=== PATIENT | male | born 1960 | race Hispanic/Latino ===

== ENCOUNTER 2021-11-09 09:10 | Inpatient (IN) | payer BC ==
[2021-11-08 14:08] LABS: BASOPHILS % (AUTO) 0.6 % (0.0-5.0); EOSINOPHILS % (AUTO) 1.9 % (0.0-8.0); HEMATOCRIT 36.2 % (42-54); LYMPHOCYTES % (AUTO) 20.1 % (21.0-51.0); MEAN CORPUSCULAR HEMOGLOBIN 29.4 pg (27.0-33.0); MEAN CORPUSCULAR HGB CONC 32.9 g/dL (32.0-36.0); MEAN CORPUSCULAR VOLUME 89.4 fL (79-99); MONOCYTES % (AUTO) 6.2 % (3.0-13.0); NEUTROPHILS % (AUTO) 70.8 % (40.0-77.0); PLATELET COUNT (AUTO) 249 K/uL (130-400); RED BLOOD CELL COUNT(AUTO) 4.05 MIL/uL (4.50-6.20); RED CELL DISTRIBUTION WIDTH 13.6 % (11.0-15.5); WHITE BLOOD COUNT (AUTO) 8.2 K/uL (4.8-10.8)
[2021-11-08 14:10] VITALS: BP 104/75
[2021-11-08 14:12] LABS: ABG BASE EXCESS 0.6 mmol/L (-2.0-3.0); ABG OXYGEN SATURATION 97.9 % (95.0-99.0); ABG PCO2 31 mmHg (35-48)
[2021-11-08 14:19] LABS: INR 1.1 (0.85-1.15); PROTHROMBIN TIME 11.9 SEC (9.6-11.6)
[2021-11-08 14:20] LABS: PARTIAL THROMBOPLASTIN TIME 28.7 SEC (26.3-35.5)
[2021-11-08 14:22] LABS: ALBUMIN 3.6 g/dL (3.5-5.0); BILIRUBIN,TOTAL 0.5 mg/dL (0.2-1.0); POTASSIUM 3.8 mmol/L (3.5-5.1); TOTAL PROTEIN, SERUM 7.6 g/dL (6.0-8.3)
[2021-11-08 14:23] LABS: HEMOGLOBIN A1C 8.2 % (4.0-6.0)
[~2021-11-09] VITALS: Ht 170.2 cm; Wt 78.6 kg
[2021-11-09] MEDS ORDERED: CARV3.1262 PO (12:45)
[2021-11-09] MEDS ORDERED: LISI2.5T13 PO (12:45)
[2021-11-09] MEDS ORDERED: FURO40TA5 PO (12:45)
[2021-11-09] MEDS ORDERED: ASPI-1197 PO (12:45)
[2021-11-09] MEDS ORDERED: APIX5TAB PO (12:45)
[2021-11-09] MEDS ORDERED: ATOR40TA71 PO (12:45)
[2021-11-09] MEDS ORDERED: METF-444 PO (12:45)
[2021-11-10] MEDS ORDERED: CEFAZOLIN SODIUM 1 GM VIAL IVP SCH (06:00)
[2021-11-12] VITALS (10 sets, daily range): BP systolic 96–131; BP diastolic 48–87
[2021-11-12] MEDS ORDERED: AMINOCAPROIC ACID 5,000MG VIAL 15,000 MG in 0.9% NACL 500ML IV.SOLN 420 ML IV PRN ×2 (09:00→14:53)
[2021-11-12] MEDS ORDERED: 0.9%NACL 1000ML 1,000 ML IV ONE ×2 (09:27→20:41)
[2021-11-12] MEDS ORDERED: NITROGLYCERIN 50MG/D5W 250ML 1 BOT ONE (11:29)
[2021-11-12] MEDS ORDERED: OCTYL 2-CYANOACRYLATE 1 EACH TP ONE (11:33)
[2021-11-12] MEDS ORDERED: CEFAZOLIN SODIUM 1 GM VIAL ONE ×3 (11:33→19:35)
[2021-11-12] MEDS ORDERED: PAPAVERINE HCL 30 MG/ML 2ML VIAL ONE ×2 (11:34→16:09)
[2021-11-12] MEDS ORDERED: HEPARIN 10,000 UNIT/10ML (1,000 UNIT/ML) VIAL IV ONE (14:45)
[2021-11-12] MEDS ORDERED: AMINOCAPROIC ACID 5,000MG VIAL IV ONE (14:45)
[2021-11-12] MEDS ORDERED: MANNITOL 25% 50ML VIAL IV ONE (14:45)
[2021-11-12] MEDS ORDERED: ALBUMIN (HUMAN) 25% 50 ML IV ONE (14:45)
[2021-11-12] MEDS ORDERED: PHENYLEPHRINE HCL 10 MG/ML 1ML VIAL IV ONE (14:45)
[2021-11-12] MEDS ORDERED: MAGNESIUM SULFATE 1 GM/2 ML VIAL IM ONE (14:45)
[2021-11-12] MEDS ORDERED: SODIUM BICARB 8.4% 50ML SYRINGE IVP ONE (14:45)
[2021-11-12] MEDS ORDERED: EPINEPHRINE PF 1MG AMP 10 MG in 0.9% NACL 250ML 240 ML IV PRN (14:51)
[2021-11-12] MEDS ORDERED: NOREPINEPHRINE BITARTRATE 8 MG in 0.9% NACL 250ML 250 ML IV PRN (14:52)
[2021-11-12] MEDS ORDERED: HEPARIN 10,000 UNIT/10ML (1,000 UNIT/ML) VIAL ONE ×2 (15:15→16:36)
[2021-11-12] MEDS ORDERED: EPINEPHRINE PF 1MG AMP ONE (16:36)
[2021-11-12] MEDS ORDERED: LIDOCAINE PF 100MG/5ML (2%) SYRINGE 5ML ONE ×2 (16:36→16:37)
[2021-11-12] MEDS ORDERED: PROTAMINE SULFATE 10 MG/ML 25ML VIAL IV ONE (16:36)
[2021-11-12] MEDS ORDERED: ESMOLOL HCL 10 MG/ML 10 ML VIAL ONE ×2 (16:36→16:40)
[2021-11-12] MEDS ORDERED: SODIUM BICARB 50MEQ 50ML VIAL 150 ML ONE (16:36)
[2021-11-12] MEDS ORDERED: ROCURONIUM 10MG/1ML SYR 10 MG/ML ML ONE (16:37)
[2021-11-12] MEDS ORDERED: FENTANYL CITRATE PF 50 MCG/1 ML 20ML VIAL IJ ONE (16:37)
[2021-11-12] MEDS ORDERED: NOREPINEPHRINE BITARTRATE 1 MG/1 ML ML IV ONE (16:37)
[2021-11-12] MEDS ORDERED: SUCCINYLCHOLINE CHLORIDE 20 MG/ML 10 ML VIAL ONE (16:37)
[2021-11-12] MEDS ORDERED: PROPOFOL 10 MG/ML 20ML VIAL IV ONE (16:37)
[2021-11-12] MEDS ORDERED: MIDAZOLAM HCL 1 MG/ML 2ML VIAL ONE (16:37)
[2021-11-12] MEDS ORDERED: AMINOCAPROIC ACID 5,000MG VIAL ONE (16:37)
[2021-11-12] MEDS ORDERED: ETOMIDATE 20MG VIAL ONE (16:40)
[2021-11-12] MEDS ORDERED: AMIODARONE 150MG VIAL ONE (17:04)
[2021-11-12] MEDS ORDERED: VASOPRESSIN 20 UNITS/ML 1ML VIAL ONE (17:05)
[2021-11-12 17:24] LABS: ABG BASE EXCESS -3.4 mmol/L (-2.0-3.0); ABG HCO3 20.7 mmol/L (21.0-28.0); ABG OXYGEN SATURATION 99.8 % (95.0-99.0); ABG PCO2 34 mmHg (35-48)
[2021-11-12 18:28] LABS: ABG HCO3 23.2 mmol/L (21.0-28.0); ABG OXYGEN SATURATION 99.6 % (95.0-99.0); ABG PCO2 37 mmHg (35-48)
[2021-11-12 19:30] LABS: ABG BASE EXCESS 1.7 mmol/L (-2.0-3.0); ABG HCO3 26.2 mmol/L (21.0-28.0); ABG OXYGEN SATURATION 96.9 % (95.0-99.0); ABG PCO2 41 mmHg (35-48)
[2021-11-12] MEDS ORDERED: GLUCAGON 1MG KIT 1 MG ML IM PRN ×2 (20:00→21:30)
[2021-11-12] MEDS ORDERED: DEXTROSE 50%-WATER 50 ML DISP.SYRIN IV PRN ×2 (20:00→21:30)
[2021-11-12 20:02] LABS: ABG BASE EXCESS 4.7 mmol/L (-2.0-3.0); ABG HCO3 29.1 mmol/L (21.0-28.0); ABG OXYGEN SATURATION 98.8 % (95.0-99.0); ABG PCO2 42 mmHg (35-48)
[2021-11-12] MEDS ORDERED: NS PMX IV ONE (20:41)
[2021-11-12] MEDS ORDERED: 0.9% NACL 500ML IV.SOLN 500 ML IV ONE (20:41)
[2021-11-12] MEDS ORDERED: NOREPINEPHRIN 8 MG/250 ML IV ONE (20:41)
[2021-11-12] MEDS ORDERED: ALBUMIN (HUMAN) 5% 500 ML IV ONE (20:50)
[2021-11-12] MEDS ORDERED: ATORVASTATIN 40 MG TABLET PO SCH (21:00)
[2021-11-12 21:02] LABS: ABG BASE EXCESS 2.3 mmol/L (-2.0-3.0); ABG OXYGEN SATURATION 99.2 % (95.0-99.0); ABG PCO2 27 mmHg (35-48)
[2021-11-12] MEDS ORDERED: POTASSIUM CHLORIDE 20MEQ/100ML 200 ML IV ONE (21:17)
[2021-11-12] MEDS ORDERED: MORPHINE 2 MG SYG IV PRN ×2 (21:30)
[2021-11-12] MEDS ORDERED: NITROGLYCERIN 50MG/D5W 250ML 250 BOT IV SCH (21:30)
[2021-11-12] MEDS ORDERED: PROPOFOL 1000 MG/100 ML 100 ML IV PRN (21:30)
[2021-11-12] MEDS ORDERED: AMINOCAPROIC ACID 5,000MG VIAL 15,000 MG in 0.9% NACL 250ML 250 ML IV SCH (21:30)
[2021-11-12] MEDS ORDERED: NOREPINEPHRIN 4MG/NS 250ML 250 ML IV PRN (21:30)
[2021-11-12] MEDS ORDERED: ACETAMINOPHEN 650 MG SUPPOSITORY RC PRN (21:30)
[2021-11-12] MEDS ORDERED: ALBUMIN (HUMAN) 5% 250 ML IV PRN (21:30)
[2021-11-12] MEDS ORDERED: EPINEPHRINE PF 1MG AMP 10 MG in DEXTROSE 5%-WATER 250 ML IV PRN (21:30)
[2021-11-12] MEDS ORDERED: 0.9% NACL 500ML IV.SOLN 500 ML IV SCH (21:30)
[2021-11-12] MEDS ORDERED: ONDANSETRON 4MG INJ IV PRN (21:30)
[2021-11-12] MEDS ORDERED: 0.9%NACL 1000ML 1,000 ML IV SCH (21:30)
[2021-11-12] MEDS ORDERED: 0.9%NACL 10ML VIAL IVP PRN (21:30)
[2021-11-12] MEDS ORDERED: INSULIN REGULAR, HUMAN 3ML 100 UNIT in 0.9%NACL 100ML 99 ML IV SCH ×2 (21:30)
[2021-11-12 22:04] LABS: BASOPHILS % (AUTO) 0.4 % (0.0-5.0); EOSINOPHILS % (AUTO) 0.5 % (0.0-8.0); HEMATOCRIT 24.7 % (42-54); LYMPHOCYTES % (AUTO) 15.2 % (21.0-51.0); MEAN CORPUSCULAR HEMOGLOBIN 30.2 pg (27.0-33.0); MEAN CORPUSCULAR HGB CONC 33.6 g/dL (32.0-36.0); MEAN CORPUSCULAR VOLUME 89.8 fL (79-99); MONOCYTES % (AUTO) 4.2 % (3.0-13.0); NEUTROPHILS % (AUTO) 79.2 % (40.0-77.0); PLATELET COUNT (AUTO) 221 K/uL (130-400); RED BLOOD CELL COUNT(AUTO) 2.75 MIL/uL (4.50-6.20); RED CELL DISTRIBUTION WIDTH 13.7 % (11.0-15.5); WHITE BLOOD COUNT (AUTO) 16.7 K/uL (4.8-10.8)
[2021-11-12 22:15] LABS: POTASSIUM 3.2 mmol/L (3.5-5.1)
[2021-11-12 22:16] LABS: HEMOGLOBIN A1C 8.3 % (4.0-6.0)
[2021-11-12 22:18] LABS: MAGNESIUM 2.1 mg/dL (1.80-2.40); PHOSPHORUS 1.3 mg/dL (2.5-4.9)
[2021-11-12 22:19] LABS: INR 1.27 (0.85-1.15); PROTHROMBIN TIME 13.5 SEC (9.6-11.6)
[2021-11-12 22:20] LABS: PARTIAL THROMBOPLASTIN TIME 27.3 SEC (26.3-35.5)
[2021-11-12] MEDS ORDERED: ASPIRIN 81MG CHEW TAB NG ONE (22:30)
[2021-11-12] MEDS ORDERED: DEXMEDETOMIDINE 400MCG/NS100ML IV ONE (22:43)
[2021-11-12] MEDS: INSULIN IV SS2 IV PRN ×2 (23:17)
[2021-11-12 23:26] LABS: ABG BASE EXCESS 0.9 mmol/L (-2.0-3.0); ABG HCO3 24.5 mmol/L (21.0-28.0); ABG OXYGEN SATURATION 98.8 % (95.0-99.0); ABG PCO2 35 mmHg (35-48)
[2021-11-12] MEDS: POTASSIUM CHLORIDE 20MEQ/100ML 100 ML IV PRN (23:36)
[2021-11-13] VITALS (75 sets, daily range): BP systolic 94–146; BP diastolic 46–93
[2021-11-13] MEDS ORDERED: DEXMEDETOMIDINE 400MCG/NS100ML IV SCH
[2021-11-13 00:28] LABS: ABG BASE EXCESS -0.5 mmol/L (-2.0-3.0); ABG HCO3 23.7 mmol/L (21.0-28.0); ABG OXYGEN SATURATION 97.8 % (95.0-99.0); ABG PCO2 37 mmHg (35-48)
[2021-11-13] MEDS: POTASSIUM CHLORIDE 20MEQ/100ML 100 ML IV PRN ×4 (01:04→04:27)
[2021-11-13 01:27] LABS: ABG BASE EXCESS 0.3 mmol/L (-2.0-3.0); ABG HCO3 23.8 mmol/L (21.0-28.0); ABG OXYGEN SATURATION 97.9 % (95.0-99.0); ABG PCO2 34 mmHg (35-48)
[2021-11-13] MEDS: CEFAZOLIN SODIUM 1 GM VIAL IV SCH ×3 (01:51→18:03)
[2021-11-13 03:06] LABS: ABG BASE EXCESS 0.8 mmol/L (-2.0-3.0); ABG OXYGEN SATURATION 98.1 % (95.0-99.0); ABG PCO2 33 mmHg (35-48)
[2021-11-13] MEDS: CALCIUM GLUC 1GM 1 GM in 0.9%NACL 50ML 50 ML IV PRN ×2 (03:42→19:32)
[2021-11-13 04:02] LABS: ABG BASE EXCESS 0.6 mmol/L (-2.0-3.0); ABG HCO3 23.7 mmol/L (21.0-28.0); ABG PCO2 32 mmHg (35-48)
[2021-11-13 04:20] LABS: HEMATOCRIT 25.7 % (42-54); MEAN CORPUSCULAR HEMOGLOBIN 29.6 pg (27.0-33.0); MEAN CORPUSCULAR HGB CONC 32.7 g/dL (32.0-36.0); MEAN CORPUSCULAR VOLUME 90.5 fL (79-99); RED BLOOD CELL COUNT(AUTO) 2.84 MIL/uL (4.50-6.20); RED CELL DISTRIBUTION WIDTH 13.7 % (11.0-15.5); WHITE BLOOD COUNT (AUTO) 16.5 K/uL (4.8-10.8)
[2021-11-13 04:35] LABS: INR 1.21 (0.85-1.15)
[2021-11-13 04:37] LABS: CREATININE 1.1 mg/dL (0.5-1.5); PHOSPHORUS 0.8 mg/dL (2.5-4.9); POTASSIUM 4.3 mmol/L (3.5-5.1)
[2021-11-13 04:56] LABS: PARTIAL THROMBOPLASTIN TIME 29.8 SEC (26.3-35.5)
[2021-11-13 05:32] LABS: ABG BASE EXCESS -0.3 mmol/L (-2.0-3.0); ABG HCO3 22.9 mmol/L (21.0-28.0); ABG PCO2 32 mmHg (35-48)
[2021-11-13 06:34] LABS: ABG BASE EXCESS -1.9 mmol/L (-2.0-3.0); ABG OXYGEN SATURATION 97.9 % (95.0-99.0); ABG PCO2 29 mmHg (35-48)
[2021-11-13] MEDS: SODIUM BICARB 50MEQ 50ML VIAL IV PRN ×2 (06:47→21:27)
[2021-11-13] MEDS: POTASSIUM PHOS 15 mMOL+NS250ML 250 ML IV PRN (07:35)
[2021-11-13 07:46] LABS: ABG BASE EXCESS -0.1 mmol/L (-2.0-3.0); ABG HCO3 22.4 mmol/L (21.0-28.0); ABG OXYGEN SATURATION 97.9 % (95.0-99.0); ABG PCO2 29 mmHg (35-48)
[2021-11-13] MEDS: ASPIRIN 81MG CHEW TAB PO SCH (08:15)
[2021-11-13] MEDS: ACETAMINOPHEN 325 MG TAB PO PRN ×2 (08:15→13:27)
[2021-11-13] MEDS ORDERED: FAMOTIDINE 20MG VIAL IV SCH (09:00)
[2021-11-13 09:18] LABS: ABG BASE EXCESS -0.8 mmol/L (-2.0-3.0); ABG OXYGEN SATURATION 97.9 % (95.0-99.0); ABG PCO2 30 mmHg (35-48)
[2021-11-13] MEDS: MAGNESIUM 2GM PREMIX 50ML 50 ML IV PRN (10:30)
[2021-11-13] MEDS ORDERED: ALBUMIN (HUMAN) 5% 500 ML IV SCH (11:00)
[2021-11-13] MEDS ORDERED: ALBUMIN (HUMAN) 5% 500 ML IV ONE (11:01)
[2021-11-13 12:10] LABS: ABG BASE EXCESS -1.3 mmol/L (-2.0-3.0); ABG HCO3 21.8 mmol/L (21.0-28.0); ABG PCO2 31 mmHg (35-48)
[2021-11-13 15:58] LABS: CREATININE 1.1 mg/dL (0.5-1.5); MAGNESIUM 2.2 mg/dL (1.80-2.40); PHOSPHORUS 4.1 mg/dL (2.5-4.9); POTASSIUM 4.7 mmol/L (3.5-5.1)
[2021-11-13] MEDS: 1/2 NS 1000ML 1,000 ML IV SCH (16:00)
[2021-11-13] MEDS: TRAMADOL HCL 50 MG TABLET PO PRN ×2 (16:36→23:16)
[2021-11-13 19:26] LABS: ABG BASE EXCESS -0.6 mmol/L (-2.0-3.0); ABG HCO3 23.2 mmol/L (21.0-28.0); ABG OXYGEN SATURATION 97.5 % (95.0-99.0); ABG PCO2 34 mmHg (35-48)
[2021-11-13] MEDS: INSULIN IV SS2 IV PRN ×2 (19:33)
[2021-11-13] MEDS: FUROSEMIDE 20 MG TABLET PO SCH (20:14)
[2021-11-13] MEDS: ATORVASTATIN 40 MG TABLET PO SCH (20:14)
[2021-11-13] MEDS: FAMOTIDINE 20MG TAB PO SCH (20:14)
[2021-11-13] MEDS ORDERED: EPINEPHRINE IV PRN ×2 (20:30)
[2021-11-13] MEDS ORDERED: NOREPINEPHRINE IV PRN ×2 (20:30)
[2021-11-13] MEDS ORDERED: [UNRECOGNIZED DRUG - OTHER] IV PRN ×2 (20:30)
[2021-11-13] MEDS ORDERED: NS IV PRN ×2 (20:30)
[2021-11-13 21:16] LABS: ABG BASE EXCESS -1.4 mmol/L (-2.0-3.0); ABG HCO3 22.7 mmol/L (21.0-28.0); ABG OXYGEN SATURATION 96.9 % (95.0-99.0); ABG PCO2 35 mmHg (35-48)
[2021-11-14] VITALS (24 sets, daily range): BP systolic 116–170; BP diastolic 59–103
[2021-11-14] LABS: ABG BASE EXCESS -0.5 mmol/L (-2.0-3.0); ABG HCO3 23.8 mmol/L (21.0-28.0); ABG OXYGEN SATURATION 96.5 % (95.0-99.0); ABG PCO2 37 mmHg (35-48)
[2021-11-14] MEDS: CALCIUM GLUC 1GM 1 GM in 0.9%NACL 50ML 50 ML IV PRN ×3 (00:12→22:05)
[2021-11-14] MEDS: POTASSIUM CHLORIDE 20MEQ/100ML 100 ML IV PRN ×2 (00:13→22:05)
[2021-11-14] MEDS: 1/2 NS 1000ML 1,000 ML IV SCH (03:11)
[2021-11-14 04:18] LABS: ABG BASE EXCESS -0.5 mmol/L (-2.0-3.0); ABG HCO3 23.6 mmol/L (21.0-28.0); ABG OXYGEN SATURATION 95.7 % (95.0-99.0); ABG PCO2 37 mmHg (35-48)
[2021-11-14 04:29] LABS: HEMATOCRIT 24.1 % (42-54); MEAN CORPUSCULAR VOLUME 93.8 fL (79-99); RED BLOOD CELL COUNT(AUTO) 2.57 MIL/uL (4.50-6.20); RED CELL DISTRIBUTION WIDTH 14.5 % (11.0-15.5); WHITE BLOOD COUNT (AUTO) 16.3 K/uL (4.8-10.8)
[2021-11-14 04:36] LABS: INR 1.45 (0.85-1.15); PROTHROMBIN TIME 15.3 SEC (9.6-11.6)
[2021-11-14 04:38] LABS: PARTIAL THROMBOPLASTIN TIME 33.2 SEC (26.3-35.5)
[2021-11-14 04:56] LABS: ALBUMIN 3.4 g/dL (3.5-5.0); BILIRUBIN,TOTAL 1.1 mg/dL (0.2-1.0); CREATININE 0.9 mg/dL (0.5-1.5); MAGNESIUM 2.1 mg/dL (1.80-2.40); POTASSIUM 4.5 mmol/L (3.5-5.1)
[2021-11-14 07:56] LABS: ABG HCO3 24.4 mmol/L (21.0-28.0); ABG OXYGEN SATURATION 97.6 % (95.0-99.0); ABG PCO2 38 mmHg (35-48)
[2021-11-14] MEDS: FUROSEMIDE 20 MG TABLET PO SCH (08:48)
[2021-11-14] MEDS: ASPIRIN 81MG CHEW TAB PO SCH (08:48)
[2021-11-14] MEDS: FAMOTIDINE 20MG TAB PO SCH ×2 (08:48→20:06)
[2021-11-14] MEDS: TRAMADOL HCL 50 MG TABLET PO PRN ×2 (08:50→21:31)
[2021-11-14] MEDS: INSULIN HUMULIN R 100 UNIT/ML 3ML SQ SCH ×3 (11:30→20:26)
[2021-11-14] MEDS: FUROSEMIDE 40MG VIAL IV SCH (13:36)
[2021-11-14 15:40] LABS: ABG HCO3 21.9 mmol/L (21.0-28.0); ABG OXYGEN SATURATION 96.6 % (95.0-99.0); ABG PCO2 34 mmHg (35-48)
[2021-11-14] MEDS: SODIUM BICARB 50MEQ 50ML VIAL IV PRN (15:45)
[2021-11-14 18:36] LABS: MAGNESIUM 1.9 mg/dL (1.80-2.40); POTASSIUM 4.4 mmol/L (3.5-5.1)
[2021-11-14] MEDS: MAGNESIUM 2GM PREMIX 50ML 50 ML IV PRN (19:19)
[2021-11-14] MEDS: ACETAMINOPHEN 325 MG TAB PO PRN (20:06)
[2021-11-14] MEDS: ATORVASTATIN 40 MG TABLET PO SCH (20:06)
[2021-11-14 21:55] LABS: ABG BASE EXCESS 2.5 mmol/L (-2.0-3.0); ABG HCO3 26.5 mmol/L (21.0-28.0); ABG OXYGEN SATURATION 96.7 % (95.0-99.0); ABG PCO2 38 mmHg (35-48)
[2021-11-15] VITALS (65 sets, daily range): BP systolic 113–158; BP diastolic 58–86
[2021-11-15] MEDS: FUROSEMIDE 40MG VIAL IV SCH (00:51)
[2021-11-15 03:55] LABS: ABG HCO3 26.8 mmol/L (21.0-28.0); ABG OXYGEN SATURATION 97.7 % (95.0-99.0); ABG PCO2 38 mmHg (35-48)
[2021-11-15] MEDS: CALCIUM GLUC 1GM 1 GM in 0.9%NACL 50ML 50 ML IV PRN ×5 (03:58→21:16)
[2021-11-15 04:28] LABS: INR 1.29 (0.85-1.15); PROTHROMBIN TIME 13.7 SEC (9.6-11.6)
[2021-11-15 04:30] LABS: HEMATOCRIT 25.7 % (42-54); MEAN CORPUSCULAR HEMOGLOBIN 28.9 pg (27.0-33.0); MEAN CORPUSCULAR HGB CONC 31.9 g/dL (32.0-36.0); MEAN CORPUSCULAR VOLUME 90.5 fL (79-99); PARTIAL THROMBOPLASTIN TIME 32.4 SEC (26.3-35.5); RED BLOOD CELL COUNT(AUTO) 2.84 MIL/uL (4.50-6.20); RED CELL DISTRIBUTION WIDTH 14.1 % (11.0-15.5)
[2021-11-15 05:04] LABS: CREATININE 0.9 mg/dL (0.5-1.5); POTASSIUM 3.8 mmol/L (3.5-5.1)
[2021-11-15] MEDS: POTASSIUM CHLORIDE 20MEQ/100ML 100 ML IV PRN ×3 (05:37→21:04)
[2021-11-15] MEDS: INSULIN HUMULIN R 100 UNIT/ML 3ML SQ SCH ×4 (06:54→20:32)
[2021-11-15 08:46] LABS: PHOSPHORUS 2.9 mg/dL (2.5-4.9); POTASSIUM 4.4 mmol/L (3.5-5.1)
[2021-11-15] MEDS ORDERED: FUROSEMIDE 40 MG TABLET PO SCH (09:00)
[2021-11-15] MEDS: ASPIRIN 81MG CHEW TAB PO SCH (09:07)
[2021-11-15] MEDS: FAMOTIDINE 20MG TAB PO SCH ×2 (09:07→20:24)
[2021-11-15] MEDS: FUROSEMIDE 40 MG TABLET PO SCH ×2 (09:07→20:24)
[2021-11-15 15:48] LABS: MAGNESIUM 1.8 mg/dL (1.80-2.40); POTASSIUM 4.2 mmol/L (3.5-5.1)
[2021-11-15] MEDS: ACETAMINOPHEN 325 MG TAB PO PRN (16:05)
[2021-11-15] MEDS: MAGNESIUM 2GM PREMIX 50ML 50 ML IV PRN (16:32)
[2021-11-15] MEDS: TRAMADOL HCL 50 MG TABLET PO PRN (18:37)
[2021-11-15 20:18] LABS: POTASSIUM 3.7 mmol/L (3.5-5.1)
[2021-11-15] MEDS: ATORVASTATIN 40 MG TABLET PO SCH (20:24)
[2021-11-16] VITALS (32 sets, daily range): BP systolic 58–154; BP diastolic 52–135
[2021-11-16 04:07] LABS: ABG BASE EXCESS 5.9 mmol/L (-2.0-3.0); ABG HCO3 29.5 mmol/L (21.0-28.0); ABG OXYGEN SATURATION 98.3 % (95.0-99.0); ABG PCO2 39 mmHg (35-48)
[2021-11-16 04:09] LABS: HEMATOCRIT 26.6 % (42-54); MEAN CORPUSCULAR HEMOGLOBIN 28.6 pg (27.0-33.0); MEAN CORPUSCULAR HGB CONC 31.2 g/dL (32.0-36.0); MEAN CORPUSCULAR VOLUME 91.7 fL (79-99); RED BLOOD CELL COUNT(AUTO) 2.9 MIL/uL (4.50-6.20); RED CELL DISTRIBUTION WIDTH 13.9 % (11.0-15.5)
[2021-11-16 04:36] LABS: ALBUMIN 2.9 g/dL (3.5-5.0); BILIRUBIN,TOTAL 1.2 mg/dL (0.2-1.0); CREATININE 0.7 mg/dL (0.5-1.5); MAGNESIUM 1.8 mg/dL (1.80-2.40); PHOSPHORUS 2.1 mg/dL (2.5-4.9); POTASSIUM 3.3 mmol/L (3.5-5.1); TOTAL PROTEIN, SERUM 6.1 g/dL (6.0-8.3)
[2021-11-16 04:46] LABS: INR 1.16 (0.85-1.15); PROTHROMBIN TIME 12.5 SEC (9.6-11.6)
[2021-11-16] MEDS: INSULIN HUMULIN R 100 UNIT/ML 3ML SQ SCH ×4 (05:39→20:30)
[2021-11-16] MEDS: FAMOTIDINE 20MG TAB PO SCH ×2 (08:11→20:30)
[2021-11-16] MEDS: ASPIRIN 81MG CHEW TAB PO SCH (08:11)
[2021-11-16] MEDS: POTASSIUM CHLORIDE 20MEQ/100ML 100 ML IV PRN (08:12)
[2021-11-16] MEDS: FUROSEMIDE 40 MG TABLET PO SCH ×2 (08:12→20:30)
[2021-11-16] MEDS: MAGNESIUM 2GM PREMIX 50ML 50 ML IV PRN (08:12)
[2021-11-16] MEDS: POTASSIUM PHOS 15 mMOL+NS250ML 250 ML IV PRN (09:08)
[2021-11-16] MEDS ORDERED: PERFLUTREN PROTEIN-A MICROSPHR 0.22 MG/ML VIAL IV ONE (12:00)
[2021-11-16] MEDS: ATORVASTATIN 40 MG TABLET PO SCH (20:30)
[2021-11-16] MEDS: TRAMADOL HCL 50 MG TABLET PO PRN (20:31)
[2021-11-17] VITALS (29 sets, daily range): BP systolic 95–142; BP diastolic 40–77
[2021-11-17 04:15] LABS: BASOPHILS % (AUTO) 0.7 % (0.0-5.0); EOSINOPHILS % (AUTO) 4.2 % (0.0-8.0); HEMATOCRIT 27.2 % (42-54); LYMPHOCYTES % (AUTO) 20.6 % (21.0-51.0); MEAN CORPUSCULAR HGB CONC 32.4 g/dL (32.0-36.0); MEAN CORPUSCULAR VOLUME 89.8 fL (79-99); MONOCYTES % (AUTO) 10.4 % (3.0-13.0); NEUTROPHILS % (AUTO) 63.7 % (40.0-77.0); PLATELET COUNT (AUTO) 137 K/uL (130-400); RED BLOOD CELL COUNT(AUTO) 3.03 MIL/uL (4.50-6.20); RED CELL DISTRIBUTION WIDTH 13.6 % (11.0-15.5); WHITE BLOOD COUNT (AUTO) 6.9 K/uL (4.8-10.8)
[2021-11-17 04:23] LABS: INR 1.13 (0.85-1.15); PROTHROMBIN TIME 12.2 SEC (9.6-11.6)
[2021-11-17 04:24] LABS: CREATININE 0.6 mg/dL (0.5-1.5); MAGNESIUM 1.7 mg/dL (1.80-2.40); PARTIAL THROMBOPLASTIN TIME 30.4 SEC (26.3-35.5); PHOSPHORUS 2.4 mg/dL (2.5-4.9); POTASSIUM 3.3 mmol/L (3.5-5.1)
[2021-11-17] MEDS: POTASSIUM CHLORIDE 20MEQ/100ML 100 ML IV PRN ×2 (05:35→08:26)
[2021-11-17] MEDS: INSULIN HUMULIN R 100 UNIT/ML 3ML SQ SCH ×4 (05:37→21:00)
[2021-11-17] MEDS: FUROSEMIDE 40 MG TABLET PO SCH (08:25)
[2021-11-17] MEDS: ASPIRIN 81MG CHEW TAB PO SCH (08:25)
[2021-11-17] MEDS: CARVEDILOL 3.125 MG TABLET PO SCH ×2 (08:25→21:24)
[2021-11-17] MEDS: FAMOTIDINE 20MG TAB PO SCH ×2 (08:25→21:24)
[2021-11-17] MEDS: MAGNESIUM 2GM PREMIX 50ML 50 ML IV PRN (08:26)
[2021-11-17 12:32] LABS: MAGNESIUM 2.2 mg/dL (1.80-2.40); POTASSIUM 3.9 mmol/L (3.5-5.1)
[2021-11-17] MEDS: ATORVASTATIN 40 MG TABLET PO SCH (21:19)
[2021-11-17] MEDS: TRAMADOL HCL 50 MG TABLET PO PRN (21:25)
[2021-11-18 03:00] VITALS: BP 99/63
[2021-11-18 03:49] LABS: HEMATOCRIT 25.7 % (42-54); MEAN CORPUSCULAR HEMOGLOBIN 29.5 pg (27.0-33.0); MEAN CORPUSCULAR HGB CONC 33.1 g/dL (32.0-36.0); MEAN CORPUSCULAR VOLUME 89.2 fL (79-99); RED BLOOD CELL COUNT(AUTO) 2.88 MIL/uL (4.50-6.20); RED CELL DISTRIBUTION WIDTH 13.7 % (11.0-15.5)
[2021-11-18 03:59] LABS: CREATININE 0.7 mg/dL (0.5-1.5); POTASSIUM 3.4 mmol/L (3.5-5.1)
[2021-11-18] MEDS: INSULIN HUMULIN R 100 UNIT/ML 3ML SQ SCH ×4 (05:14→21:00)
[2021-11-18] MEDS ORDERED: KCL 20 MEQ ERTAB PO ONE (05:52)
[2021-11-18] MEDS ORDERED: POTASSIUM CHLORIDE 10% ELIXIR 20 MEQ/15 ML UDCUP PO PRN (06:00)
[2021-11-18] MEDS ORDERED: KCL 20 MEQ ERTAB PO PRN (06:00)
[2021-11-18] MEDS: ASPIRIN 81MG CHEW TAB PO SCH (07:47)
[2021-11-18] MEDS: FAMOTIDINE 20MG TAB PO SCH ×2 (07:47→20:12)
[2021-11-18] MEDS: CARVEDILOL 3.125 MG TABLET PO SCH ×2 (07:48→20:12)
[2021-11-18] MEDS: FUROSEMIDE 20 MG TABLET PO SCH ×2 (07:48→16:25)
[2021-11-18 08:06] VITALS: BP 98/60
[2021-11-18] MEDS: APIXABAN 5 MG TABLET PO SCH ×2 (08:20→20:12)
[2021-11-18 11:49] VITALS: BP 93/51
[2021-11-18 15:57] VITALS: BP 97/59
[2021-11-18 19:19] VITALS: BP 104/68
[2021-11-18] MEDS: ATORVASTATIN 40 MG TABLET PO SCH (20:11)
[2021-11-18 23:05] VITALS: BP 97/61
[2021-11-19] MEDS: ACETAMINOPHEN 325 MG TAB PO PRN (02:08)
[2021-11-19 03:20] VITALS: BP 102/64
[2021-11-19] MEDS: INSULIN HUMULIN R 100 UNIT/ML 3ML SQ SCH ×3 (06:19→15:53)
[2021-11-19 07:30] VITALS: BP 104/70
[2021-11-19] MEDS: FUROSEMIDE 20 MG TABLET PO SCH ×2 (08:04→16:21)
[2021-11-19] MEDS: ASPIRIN 81MG CHEW TAB PO SCH (08:04)
[2021-11-19] MEDS: FAMOTIDINE 20MG TAB PO SCH (08:04)
[2021-11-19] MEDS: CARVEDILOL 3.125 MG TABLET PO SCH (08:04)
[2021-11-19] MEDS: APIXABAN 5 MG TABLET PO SCH (08:06)
[2021-11-19] MEDS ORDERED: LISINOPRIL 2.5 MG TABLET PO SCH (09:00)
[2021-11-19 11:50] VITALS: BP 98/59
[2021-11-19] MEDS ORDERED: FURO20TA6 PO (15:21)
[2021-11-19 15:55] VITALS: BP 108/70
== END 2021-11-19 17:20 | disposition home or self-care (01) | DRG 235 ==
LOC: EDSTATUS 11-10 09:00 → DAHIP 11-12 08:58 → UNDOADMIN 11-12 08:58 → 2CV 11-12 18:32 → 2CH 11-15 17:53 → 2DH 11-18 06:44
PROVIDERS: ADMIT Thoracic Surgery (Cardiothoracic Vascular Surgery); ATTEND Thoracic Surgery (Cardiothoracic Vascular Surgery)
PROC: 5A02210 Assistance with Cardiac Output using Balloon Pump, Continuous (ICD-10-PCS; 2021-11-12)
PROC: 5A1221Z Performance of Cardiac Output, Continuous (ICD-10-PCS; 2021-11-12)
PROC: 02100Z9 Bypass Coronary Artery, One Artery from Left Internal Mammary, Open Approach (ICD-10-PCS; principal; 2021-11-12 16:36)
PROC: 021209W Bypass Coronary Artery, Three Arteries from Aorta with Autologous Venous Tissue, Open Approach (ICD-10-PCS; 2021-11-12 16:36)
PROC: 06BQ4ZZ Excision of Left Saphenous Vein, Percutaneous Endoscopic Approach (ICD-10-PCS; 2021-11-12 16:36)
PROC: 30233N0 Transfusion of Autologous Red Blood Cells into Peripheral Vein, Percutaneous Approach (ICD-10-PCS; 2021-11-12 16:36)
DX: I25.10 Atherosclerotic heart disease of native coronary artery without angina pectoris (principal); I50.43 Acute on chronic combined systolic (congestive) and diastolic (congestive) heart failure; J95.1 Acute pulmonary insufficiency following thoracic surgery; D68.69 Other thrombophilia; E78.5 Hyperlipidemia, unspecified; I49.5 Sick sinus syndrome; Z20.822 Contact with and (suspected) exposure to COVID-19; I25.5 Ischemic cardiomyopathy; E11.9 Type 2 diabetes mellitus without complications; E78.00 Pure hypercholesterolemia, unspecified; I11.0 Hypertensive heart disease with heart failure; I27.20 Pulmonary hypertension, unspecified; I48.91 Unspecified atrial fibrillation; I25.2 Old myocardial infarction; Z79.01 Long term (current) use of anticoagulants; Z79.82 Long term (current) use of aspirin; Z79.899 Other long term (current) drug therapy; Z86.73 Personal history of transient ischemic attack (TIA), and cerebral infarction without residual deficits; Z95.5 Presence of coronary angioplasty implant and graft; Z95.810 Presence of automatic (implantable) cardiac defibrillator; Z79.4 Long term (current) use of insulin; Z83.3 Family history of diabetes mellitus; Z82.49 Family history of ischemic heart disease and other diseases of the circulatory system; Y83.8 Other surgical procedures as the cause of abnormal reaction of the patient, or of later complication, without mention of misadventure at the time of the procedure; Y92.238 Other place in hospital as the place of occurrence of the external cause
CPT/HCPCS: 36415; 36600; 71045; 80048; 80053; 80061; 82330; 82435; 82803; 82947; 82948; 83036; 83605; 83735; 83880; 84100; 84132; 84295; 85018; 85025; 85027; 85384; 85610; 85730; 86850; 86900; 86901; 86923; 87635; 93005; 93880; 94002; 94003; 94010; 96374; 97039; A4344; A7048; C8924; G0378; J0171; J0282; J0330; J0610; J0690; J1644; J1815; J1940; J2001; J2150; J2250; J2370; J2405; J2440; J2704; J2720; J3010; J3475; J3480; J3490; J7030; J7040; J7050; J7120; P9012; P9034; P9045; P9047

== ENCOUNTER → 2022-02-25 | Outpatient (CLI) | payer BC ==
[~2022-02-25] MED LIST: APIX5TAB PO; ASPI-1197 PO; ATOR40TA71 PO; CARV3.1262 PO; FURO20TA6 PO; METF-444 PO
[2022-02-25 12:40] LABS: INR 1.27 (0.85-1.15); PROTHROMBIN TIME 13.5 SEC (9.6-11.6)
== END ==
LOC: LAB 09:56
PROVIDERS: ATTEND Internal Medicine Cardiovascular Disease
DX: I63.9 Cerebral infarction, unspecified (principal)
CPT/HCPCS: 36415; 85610

== ENCOUNTER → 2022-03-04 | Outpatient (CLI) | payer BC ==
[2022-03-04 12:44] LABS: INR 1.21 (0.85-1.15)
== END | disposition home or self-care (01) ==
LOC: LAB 10:58
PROVIDERS: ATTEND Internal Medicine Cardiovascular Disease
DX: I63.9 Cerebral infarction, unspecified (principal)
CPT/HCPCS: 36415; 85610

== ENCOUNTER → 2022-03-11 | Outpatient (CLI) | payer BC ==
[2022-03-11 13:08] LABS: INR 1.23 (0.85-1.15); PROTHROMBIN TIME 13.3 SEC (9.6-11.6)
== END | disposition home or self-care (01) ==
LOC: LAB 10:14
PROVIDERS: ATTEND Internal Medicine Cardiovascular Disease
DX: I63.9 Cerebral infarction, unspecified (principal)
CPT/HCPCS: 36415; 85610

== ENCOUNTER → 2022-03-25 | Outpatient (CLI) | payer BC | END | disposition home or self-care (01) | LOC: OIH 07:59 | PROVIDERS: ATTEND Internal Medicine Cardiovascular Disease | DX: I08.3 Combined rheumatic disorders of mitral, aortic and tricuspid valves (principal); I27.20 Pulmonary hypertension, unspecified; I25.10 Atherosclerotic heart disease of native coronary artery without angina pectoris; E11.9 Type 2 diabetes mellitus without complications | CPT/HCPCS: 93306 ==

== ENCOUNTER → 2022-07-12 | Outpatient (CLI) | payer BC ==
[2022-07-12 13:26] LABS: INR 3.33 (0.85-1.15); PROTHROMBIN TIME 33.9 SEC (9.6-11.6)
== END | disposition home or self-care (01) ==
LOC: LAB 09:52
PROVIDERS: ATTEND Internal Medicine Cardiovascular Disease
DX: I10 Essential (primary) hypertension (principal); I25.5 Ischemic cardiomyopathy; I63.9 Cerebral infarction, unspecified; I25.2 Old myocardial infarction; I51.3 Intracardiac thrombosis, not elsewhere classified; E11.9 Type 2 diabetes mellitus without complications; E78.5 Hyperlipidemia, unspecified; Z95.1 Presence of aortocoronary bypass graft; Z79.01 Long term (current) use of anticoagulants; Z79.899 Other long term (current) drug therapy
CPT/HCPCS: 36415; 85610

== ENCOUNTER → 2023-01-17 | Outpatient (CLI) | payer BC ==
[2023-01-17 12:36] LABS: BASOPHILS % (AUTO) 1.1 % (0.0-5.0); EOSINOPHILS % (AUTO) 0.7 % (0.0-8.0); HEMATOCRIT 38.1 % (42-54); LYMPHOCYTES % (AUTO) 21.3 % (21.0-51.0); MEAN CORPUSCULAR HEMOGLOBIN 30.7 pg (27.0-33.0); MEAN CORPUSCULAR HGB CONC 33.1 g/dL (32.0-36.0); MEAN CORPUSCULAR VOLUME 92.9 fL (79-99); MONOCYTES % (AUTO) 9.6 % (3.0-13.0); NEUTROPHILS % (AUTO) 67.1 % (40.0-77.0); PLATELET COUNT (AUTO) 121 K/uL (130-400); RED CELL DISTRIBUTION WIDTH 16.2 % (11.0-15.5); WHITE BLOOD COUNT (AUTO) 5.4 K/uL (4.8-10.8)
== END | disposition home or self-care (01) ==
LOC: LAB 10:37
PROVIDERS: ATTEND Internal Medicine Cardiovascular Disease
DX: I50.22 Chronic systolic (congestive) heart failure (principal)
CPT/HCPCS: 36415; 85025

== ENCOUNTER → 2023-02-25 | Outpatient (CLI) | payer BC ==
[~2023-02-25] MED LIST changes: +AMIO200T44 PO; -METF-444 PO; +METF-445 PO; +METO5TAB7 PO; +OMEP40CA21 PO; +SACU1TAB PO
[2023-02-25 11:17] LABS: INR 1.83 (0.85-1.15); PROTHROMBIN TIME 19.3 SEC (9.6-11.6)
== END | disposition home or self-care (01) ==
LOC: LAB 10:38
PROVIDERS: ATTEND Internal Medicine Cardiovascular Disease
DX: I10 Essential (primary) hypertension (principal)
CPT/HCPCS: 36415; 85610; 85730

== ENCOUNTER → 2023-03-16 | Outpatient (CLI) | payer BC | END | disposition home or self-care (01) | LOC: LAB 09:37 | PROVIDERS: ATTEND Internal Medicine Cardiovascular Disease | DX: R06.02 Shortness of breath (principal) | CPT/HCPCS: 36415; 83880 ==

== ENCOUNTER → 2023-08-14 | Outpatient (CLI) | payer BC ==
[2023-08-14 16:25] LABS: CREATININE 5.2 mg/dL (0.5-1.5); POTASSIUM 5.9 mmol/L (3.5-5.1)
== END | disposition home or self-care (01) ==
LOC: LAB 12:31
PROVIDERS: ATTEND Internal Medicine Cardiovascular Disease
DX: I10 Essential (primary) hypertension (principal)
CPT/HCPCS: 36415; 80048